=== PATIENT | female | born 1995 | race Caucasian/White ===

== ENCOUNTER 2021-03-31 10:38 | Emergency (ER) | payer SELFPAY ==
[~2021-03-31] VITALS: Ht 172.7 cm; Wt 50.9 kg
[2021-03-31 10:46] VITALS: BP 100/61
[2021-03-31] MEDS ORDERED: OMEP20 PO (11:07)
[2021-03-31] MEDS ORDERED: FAMOTIDINE 10 MG/ML 2 ML VIAL IVP ONE (11:30)
[2021-03-31] MEDS ORDERED: SODIUM CHLORIDE 0.9% 1,000 ML IV ONE (11:30)
[2021-03-31 12:00] LABS: BASOPHILS % (AUTO) 0.6 % (0.0-2.0); EOSINOPHILS % (AUTO) 0.7 % (1.0-6.0); HEMATOCRIT 39.2 % (36-46); LYMPHOCYTES # (AUTO) 1.1 K/uL (1.0-4.8); LYMPHOCYTES % (AUTO) 10.9 % (22.0-44.0); MEAN CORPUSCULAR VOLUME 88 fL (80-100); MONOCYTES # (AUTO) 0.4 K/uL (0.1-1.0); NEUTROPHILS # (AUTO) 8.5 K/uL (1.8-7.7); NEUTROPHILS % (AUTO) 83.8 % (40.0-70.0); PLATELET COUNT (AUTO) 152 K/uL (150-450); RED BLOOD CELL COUNT(AUTO) 4.47 MIL/uL (4.00-5.20); RED CELL DISTRIBUTION WIDTH 12.8 % (11.5-14.5)
[2021-03-31 12:17] LABS: APPEARANCE,URINE BLOODY (CLEAR)
[2021-03-31 12:18] LABS: BILIRUBIN,URINE NEGATIVE (NEGATIVE); GLUCOSE, URINE (UA) NEGATIVE (NEGATIVE); KETONES,URINE NEGATIVE (NEGATIVE); OCCULT BLOOD,URINE LARGE (NEGATIVE); PH,URINE 6.5 (5.0-8.0); PROTEIN,URINE SEE CONFIRM (NEGATIVE); UROBILINOGEN,URINE 0.2 mg/dL (<=1.0)
[2021-03-31 12:19] LABS: LEUKOCYTE ESTERASE ,URINE SMALL (NEGATIVE); NITRATE,URINE NEGATIVE (NEGATIVE); RBC,URINE Full Field /HPF (0-2)
[2021-03-31 12:20] LABS: BACTERIA,URINE None Seen /HPF (None Seen); SULFOSALICYLIC ACID,URINE 3+ (Negative)
[2021-03-31 12:33] LABS: ANION GAP 9 mmol/L (8-16); CALCIUM, TOTAL 9.1 mg/dL (8.8-10.5); CARBON DIOXIDE 26 mmol/L (22-29); CHLORIDE 108 mmol/L (98-107); CREATININE 0.77 mg/dL (0.60-1.30); GLOMERULAR FILTR. RATE CALC > 60 mL/min (>60); GLUCOSE,RANDOM 85 mg/dL (70-110); SODIUM SERUM 143 mmol/L (136-145); UREA NITROGEN, BLOOD 15 mg/dL (7-18)
[2021-03-31 12:38] LABS: ALANINE AMINOTRANSFERASE 18 U/L (12-78); ALBUMIN 4.3 g/dL (3.4-5.0); ALKALINE PHOSPHATASE 55 U/L (46-116); ASPARTATE AMINOTRANSFERASE 13 U/L (15-37); BILIRUBIN,TOTAL 1.4 mg/dL (0.1-1.0); TOTAL PROTEIN, SERUM 7.9 g/dL (6.4-8.2)
[2021-03-31] MEDS ORDERED: CEPHALEXIN MONOHYDRATE 500 MG CAPSULE PO ONE (12:45)
[2021-03-31] MEDS ORDERED: CefTRIAXone SODIUM 1 GM/VIAL IV ONE (13:00)
[2021-03-31 13:43] LABS: THYROID STIMULATING HORMONE 3.34 uIU/mL (0.36-3.74)
== END 2021-03-31 13:25 | disposition home or self-care (01) ==
LOC: EMS 10:42
DX: N39.0 Urinary tract infection, site not specified (principal); R31.9 Hematuria, unspecified
CPT/HCPCS: 36415; 80053; 81001; 84443; 84703; 85025; 87077; 87086; 87186; 96361; 96374; 96375; 99284; J0696; J3490; J7030; 81002